=== PATIENT | female | born 1980 | race African-American/Black ===

== ENCOUNTER 2022-12-28 14:03 | Emergency (ER) | payer MEDICAID ==
[~2022-12-28] VITALS: Ht 170.2 cm; Wt 111.0 kg
[~2022-12-28 14:03] MED LIST: ALBUTEROL INHALER
[2022-12-28 14:13] VITALS: O2SAT 100
[2022-12-28] MEDS ORDERED: LEVETIRACETAM 500MG PREMIX 100 ML IV ONE (14:45)
[2022-12-28 15:06] LABS: BASOPHILS % 1.7 % (0.0-2.0); EOSINOPHILS % 2.7 % (0.0-5.0); HEMATOCRIT. 28.8 % (36.0-48.0); HEMOGLOBIN. 8.2 g/dL (12.0-16.0); LYMPHOCYTES % 30.3 % (20.0-50.0); MEAN CORPUSCULAR HEMOGLOBIN 18.2 pg (28.0-32.0); MEAN CORPUSCULAR VOLUME 63.7 fL (81.0-99.0); MEAN PLATELET VOLUME 8.6 fl (7.4-10.4); MONOCYTES % 6.6 % (2.0-8.0); NEUTROPHILS % 58.7 % (40.0-76.0); PLATELET 364 x1000/uL (130-400); RED BLOOD CELL COUNT 4.52 mill/uL (4.2-5.4); RED CELL DISTRIBUTION WIDTH 20.6 % (11.6-14.6)
[2022-12-28 15:11] LABS: CHLORIDE 112 mEq/L (98-107)
[2022-12-28 15:13] LABS: PARTIAL THROMBOPLASTIN TIME 28.8 sec (23.4-31.0)
[2022-12-28 15:37] LABS: HCG SCREEN NEGATIVE
[2022-12-28 16:30] LABS: PLATELET ESTIMATE NORMAL
[2022-12-28 19:26] VITALS: BP 118/81; PULSE 78; RESP 16; TEMP 98.5
== END 2022-12-28 19:34 | disposition home or self-care (01) ==
LOC: ER 14:14
DX: R56.9 Unspecified convulsions (principal); N93.8 Other specified abnormal uterine and vaginal bleeding; Z88.0 Allergy status to penicillin
CPT/HCPCS: 99285; 96365; 70450; 76830; 76856; 80053; 84703; 85025; 85610; 85730; 86850; 86900; 86901; 36415; 93005; J1953